=== PATIENT | female | born 1985 | race Asian ===

== ENCOUNTER 2017-01-24 17:10 | Emergency (ER) | payer MEDICAID ==
[~2017-01-24] VITALS: Ht 165.1 cm; Wt 47.2 kg
[2017-01-24 17:38] VITALS: BP_SYST 126
[2017-01-24 18:02] LABS: BILIRUBIN,URINE NEGATIVE (NEGATIVE); BLOOD, URINE NEGATIVE (NEGATIVE); CLARITY/URINE CLEAR (CLEAR); COLOR,URINE YELLOW (YELLOW); GLUCOSE,URINE NEGATIVE (NEGATIVE); KETONES,URINE NEGATIVE (NEGATIVE); LEUKOCYTE ESTERASE ,URINE NEGATIVE (NEGATIVE); NITRITE, URINE NEGATIVE (NEGATIVE); PH,URINE 5.5 (5.0-8.0); PROTEIN URINE TRACE (NEGATIVE); UROBILINOGEN,URINE 0.2 (0.2-1.0)
[2017-01-24 18:10] LABS: BACTERIA,URINE FEW /HPF (None Seen); MUCUS,URINE None Seen /LPF (None Seen); RBC,URINE NONE SEEN /HPF (0-3); WBC,URINE 0-3 /HPF (0-3)
[2017-01-24 18:35] LABS: PLATELET COUNT (AUTO) 239 K/uL (130-430); RED CELL DISTRIBUTION WIDTH 12.4 % (9.0-15.0)
[2017-01-24 18:38] LABS: MEAN CORPUSCULAR HEMOGLOBIN 26 pg (27-31); MEAN CORPUSCULAR HGB CONC 32 % (32-36); MEAN CORPUSCULAR VOLUME 81 fL (79.0-98.0)
[2017-01-24 18:40] LABS: HEMATOCRIT 41.2 % (36-48); HEMOGLOBIN 13.3 g/dL (12.0-16.0); RED BLOOD CELL COUNT(AUTO) 5.09 MIL/uL (4.2-6.2); WHITE BLOOD COUNT (AUTO) 23.6 K/uL (4.8-10.8)
[2017-01-24 18:45] LABS: CALCIUM 9.4 mg/dL (8.4-11.0); CREATININE 0.77 mg/dL (0.55-1.30); POTASSIUM 3.4 mmol/L (3.5-5.1)
[2017-01-24 18:50] LABS: ALBUMIN 4.5 g/dL (3.4-4.8); BAND % (MANUAL) 9 % (0-6); BASOPHILS % (MANUAL) 0 % (0-2); EOSINOPHILS % (MANUAL) 1 % (0-7); LYMPHOCYTES % (MANUAL) 4 % (20-46); MONOCYTES % (MANUAL) 5 % (0-11); TOTAL PROTEIN, SERUM 9.2 g/dL (6.4-8.3)
--- NOTE | 2017-01-24 20:46 | NUR ---
Patient to ER bed 6 to gown for evaluation. Side rails up. Report given to JOSE NUNN AND JOSE WNA.
--- NOTE | 2017-01-24 21:06 | NUR ---
Patient is stable in bed. Patient states that she started taking Macrobid yesterday, today patient complains of vomiting x 4 and diarrhea x 1. Abdomen is soft and round. Pain 2/10. No other complaint/injuries noted or per patient.
--- NOTE | 2017-01-24 21:15 | NUR ---
Dr. Stroud at bedside
[2017-01-24] MEDS ORDERED: NACL 0.9% 1,000 ML IV ONE (22:00)
[2017-01-24 22:17] LABS: HCG,QUAL RESULT NEGATIVE (NEGATIVE)
--- NOTE | 2017-01-24 22:27 | NUR ---
patient off unit to radiology
[2017-01-24] MEDS ORDERED: IOHEXOL 0 ML IV ONE (22:31)
--- NOTE | 2017-01-24 22:46 | NUR ---
Patient stable in bed. States abdominal pain has diminished.
[2017-01-24 23:42] VITALS: BP_SYST 112
--- NOTE | 2017-01-24 23:42 | NUR ---
Patient given written and verbal discharge instructions and verbalizes understanding. ER MD discussed with patient the results and treatment provided. G Patient in stable condition. ID arm band removed. IV catheter removed intact and dressing applied, no active bleeding. Rx of zofran given. Patient educated on pain management and to follow up with PMD x 2-3 days. Pain Scale 0/10 Opportunity for questions provided and answered.
== END 2017-01-24 23:42 | disposition home or self-care (01) ==
LOC: SED 17:10
DX: A08.39 Other viral enteritis (principal); Z88.6 Allergy status to analgesic agent
CPT/HCPCS: 36415; 74176; 80053; 81000; 81025; 83605; 83690; 84703; 85007; 85027; 87040; 96360; 99285; J7030; Q9967